=== PATIENT | male | born 1955 | race Two or more races ===

== ENCOUNTER 2019-01-19 18:04 | Emergency (ER) | payer OTHER ==
[~2019-01-19] VITALS: Ht 167.6 cm; Wt 66.7 kg
[2019-01-19] MEDS ORDERED: CHLORDIAZEPOXIDE HCL 25 MG CAPSULE PO ONE (18:30)
[2019-01-19] MEDS ORDERED: CARVEDILOL 3.125 MG TABLET PO ONE (18:30)
[2019-01-19] MEDS ORDERED: CHLORDIAZEPOXIDE HCL 25 MG CAPSULE ONE (18:36)
[2019-01-19] MEDS ORDERED: CARVEDILOL 6.25 MG TABLET ONE (18:36)
--- NOTE | 2019-01-19 18:59 | NUR ---
pt brought in by lapd for various complaints pt cleared okay to book left with lapd.
[2019-01-19 19:00] VITALS: BP 129/79
== END 2019-01-19 19:01 ==
LOC: ER 18:18
DX: S00.83XA Contusion of other part of head, initial encounter (principal); I10 Essential (primary) hypertension; I25.2 Old myocardial infarction; Z95.818 Presence of other cardiac implants and grafts; W18.39XA Other fall on same level, initial encounter; Y93.89 Activity, other specified; Y92.89 Other specified places as the place of occurrence of the external cause; Y99.8 Other external cause status
CPT/HCPCS: 70450; 99284; A4606